=== PATIENT | male | born 1965 | race Caucasian/White ===

== ENCOUNTER 2017-06-13 11:54 | Day surgery (SDC) | payer BC ==
[2017-06-13 15:09] LABS: Urine Appearance Clear; Urine Blood Negative (Negative); Urine Color Yellow; Urine Ketones Negative (Negative); Urine Protein Negative (Negative); Urine Specific Gravity 1.021 (1.010-1.030); Urine Urobilinogen Negative (Negative)
[2017-06-13 15:23] LABS: ABS Basophils 0 10^3/ul (0-0.2); ABS Eosinophils 0 10^3/ul (0-0.6); ABS Lymphocytes 0.9 10^3/ul (1.0-4.8); ABS Monocytes 0.6 10^3/ul (0-0.8); ABS Neutrophils 7.4 10^3/ul (1.5-7.7); ABS Nucleated RBC 0 10^3/ul; Eosinophil % 0.5 % (0-6); Hematocrit 47 % (42-52); Hemoglobin 16.1 g/dl (14.0-18.0); Lymphocyte % 10.1 % (25-47); Mean Corpuscular HGB Conc 34 g/dl (31-36); Mean Corpuscular Hemoglobin 30 pg (27-31); Mean Corpuscular Volume 88 fL (80-94); Mean Platelet Volume 8 um3 (7.4-10.4); Nucleated Red Blood Cells % 0; Platelet Count 195 10^3/ul (150-450); Red Blood Count 5.34 10^6/ul (4.0-5.4); Red Cell Distribution Width 13 % (10.5-15)
--- NOTE | 2017-06-13 15:27 | RAD ---
INDICATION: Right flank abdominal pain. COMPARISON: There are no prior studies available for comparison. TECHNIQUE: A CT scan of the abdomen and pelvis was performed without intravenous or oral contrast. Contiguous axial sections were obtained from the lung bases through the symphysis pubis. Images were reconstructed in the coronal and sagittal planes. FINDINGS: There is mild dependent bilateral lower lobe subsegmental atelectasis. No pleural effusion is present. The liver and spleen are normal in size. The liver is decreased in attenuation consistent with fatty infiltration. In addition there is a hypoechoic nodular area in the posterior segment of the right hepatic lobe measuring 2.1 x 1.8 cm in size possibly representing focal sparing although a mass cannot be excluded. No calcified gallstones are seen. The pancreas appears to be within normal limits. The adrenal glands and kidneys are normal in size. No renal calculi or hydronephrosis is seen. No ureteral or bladder calculi are seen. The aorta is normal in caliber without significant calcific plaque. No significant enlarged retroperitoneal lymph nodes are seen. There is a small hiatal hernia. The stomach, small and large bowel appear nondistended. The appendix appears slightly prominent measuring up to 9 mm in diameter without gross evidence for inflammatory change. There is mild descending and sigmoid diverticulosis without evidence for diverticulitis. No free intraperitoneal air or fluid is seen. No significant focal osseous abnormality is seen. IMPRESSION: 1. NO EVIDENCE FOR NEPHRO OR UROLITHIASIS. 2. THE APPENDIX APPEARS SLIGHTLY PROMINENT IN SIZE POSSIBLY REPRESENTING NORMAL VARIATION VERSUS EARLY APPENDICITIS. RECOMMEND CLINICAL CORRELATION. 3. FATTY INFILTRATION OF THE LIVER. IN ADDITION THERE IS A HYPERECHOIC NODULE IN THE POSTERIOR ASPECT OF THE LIVER RECOMMEND A FOLLOW-UP ULTRASOUND FOR FURTHER EVALUATION.
[2017-06-13 15:34] LABS: EGFR Non-African American 72.9 (>60)
[2017-06-13] MEDS ORDERED: Sodium Citrate/Citric Acid* 15 ML UDC ONE (17:09)
[2017-06-13] MEDS ORDERED: Dexamethasone IV* 4 MG/ML 1 ML (4 MG) ONE (17:10)
[2017-06-13] MEDS ORDERED: ceFOXitin 2 GM IVPREMIX* 2 GM/50 ML BAG ONE (17:11)
[2017-06-13] MEDS ORDERED: Mivacurium Chloride* 20 MG/10 ML VIAL IV ONE (17:13)
[2017-06-13] MEDS ORDERED: Succinylcholine* 20 MG/ML 10 ML VIAL ONE (17:13)
[2017-06-13] MEDS ORDERED: Propofol* 10 MG/ML 20 ML BTL IV PUSH ONE (17:13)
[2017-06-13] MEDS ORDERED: Lidocaine 2% PF * 5 ML VIAL ONE (17:13)
[2017-06-13] MEDS ORDERED: fentaNYL* 50 MCG/ML 2 ML VIAL (100 MCG VIAL) ONE ×2 (17:13→17:35)
[2017-06-13] MEDS ORDERED: oxyCODONE/Acetamin 5/325 MG* TAB PO PRN (17:16)
[2017-06-13] MEDS ORDERED: HYDROcodone/ACETAMIN 5-325 MG* 1 TAB PO PRN (17:16)
[2017-06-13] MEDS ORDERED: PROCHLORPERAZINE INJ 5 MG/ML 2 ML VIAL IV PRN (17:16)
[2017-06-13] MEDS ORDERED: fentaNYL* 50 MCG/ML 2 ML VIAL (100 MCG VIAL) IV PRN (17:16)
[2017-06-13] MEDS ORDERED: Naloxone* 0.4 MG/ML 1 ML VIAL IV PRN (17:16)
[2017-06-13] MEDS ORDERED: Sodium Citrate/Citric Acid* 15 ML UDC PO ONE (17:16)
[2017-06-13] MEDS ORDERED: Bupivacaine 0.25% SDV* 30 ML ONE (17:18)
[2017-06-13] MEDS ORDERED: Ketorolac INJ* 30 MG/ML 1 ML VIAL ONE (17:33)
[2017-06-13] MEDS ORDERED: Ondansetron INJ* 2 MG/ML VIAL ONE (17:47)
[2017-06-13] MEDS ORDERED: Dexamethasone IV* 8 MG in NS 0.9% 50 ML* 50 ML IVPB SCH (18:00)
--- NOTE | 2017-06-13 18:35 | ED ---
Jabari Maynard Angela, scribed for Andrea Frederick MD on 06/13/17 at 1230 . Abdominal Pain/Male - HPI Summary HPI Summary: This pt is a 51 y/o male presenting [place] [facility] [place]/o RLQ abd pain since this morning. Pt notes he was fine yesterday and had normal appetite. This morning he woke up and noticed abd pain. He reports no appetite this morning. Pt thought that it might be gas so he had a bowel movement but had no relief of pain. Pt had 3 bowel movements this morning, which he describes as normal. Denies diarrhea. Denies nausea, vomiting, urinary symptoms, dysuria, hematuria. No significant PMHx. - History of Current Complaint Chief Complaint: EDAbdPain Stated Complaint: RIGHT ABD PAIN Time Seen by Provider: 06/13/17 12:16 Hx Obtained From: Patient Onset/Duration: Lasting Hours, Still Present Timing: Lasting Hours Severity Currently: Moderate Pain Intensity: 4 Pain Scale Used: 0-10 Numeric Location: Discrete At: RLQ Radiates: No Aggravating Factor(s): Nothing Alleviating Factor(s): Nothing Associated Signs And Symptoms: Positive: Decreased Appetite. Negative: Urinary Symptoms, Nausea, Vomiting, Diarrhea - Allergies/Home Medications Allergies/Adverse Reactions: Allergies Allergy/AdvReac Type Severity Reaction Status Date / Time No Known Allergies Allergy Verified 06/13/17 17:01 Home Medications: Home Medications Magnesium 400 mg PO DAILY 06/13/17 [History Confirmed 06/13/17] Misc Natural Products [Osteo Bi-Flex Joint Shiel] 1 unit PO DAILY 06/13/17 [ History Confirmed 06/13/17] Multivitamin Adult 2 tab PO DAILY 06/13/17 [History Confirmed 06/13/17] [place]-3 Fatty Acids [Fish Oil] 1,000 mg PO DAILY 06/13/17 [History Confirmed 04/20] Vitamin D 1,000 units PO DAILY 06/13/17 [History Confirmed 06/13/17] PMH/Surg Hx/FS Hx/Imm Hx Endocrine/Hematology History: Denies: Hx Diabetes Cardiovascular History: Denies: Hx Hypertension Infectious Disease History: No Infectious Disease History: Denies: Traveled Outside the [place] in Last 30 Days - Family History Known Family History: Negative: Cardiac Disease, Hypertension, Diabetes - Social History Alcohol Use: None Substance Use Type: Reports: None Smoking Status (MU): Unknown if Ever Smoked Review of Systems Negative: Fever, Chills Positive: Abdominal Pain. Negative: Vomiting, Nausea Negative: dysuria, hematuria Musculoskeletal: Negative Skin: Negative All Other Systems Reviewed And Are Negative: Yes Physical Exam - Summary Physical Exam Summary: Appearance: The patient is well-nourished in no acute distress and in no acute pain. Skin: The skin is warm and dry and skin color reflects adequate perfusion. HEENT: The head is normocephalic and atraumatic. The pupils are equal and reactive. The conjunctivae are clear and without drainage. Nares are patent and without drainage. Mouth reveals moist mucous membranes and the throat is without erythema and exudate. The external ears are intact. The ear canals are patent and without drainage. The tympanic membranes are intact. Neck: the neck is supple with full range of motion and non-tender. There are no carotid bruits. There is no neck vein distension. Respiratory: Chest is non-tender. Lungs are clear to auscultation and breath sounds are symmetrical and equal. Cardiovascular: Heart is regular rate and rhythm. There is no murmur or rub auscultated. There is no peripheral edema and pulses are symmetrical and equal. Abdomen: The abdomen is soft. Tender in the RLQ. No rebound or guarding. No psoas sign. There are normal bowel sounds heard in all four quadrants and there is no organomegaly palpated. Musculoskeletal: There is no back tenderness noted. Extremities are non-tender with full range of motion. There is good capillary refill. There is no peripheral edema or calf tenderness elicited. Neurological: Patient is alert and oriented to person, place and time. The patient has symmetrical motor strength in all four extremities. Cranial nerves are grossly intact. Deep tendon reflexes are symmetrical and equal in all four extremities. Psychiatric: The patient has an appropriate affect and does not exhibit any anxiety or depression. Triage Information Reviewed: Yes Vital Signs On Initial Exam: Initial Vitals Temp Pulse Resp BP Pulse Ox 98.3 F 89 16 139/79 96 06/13/17 11:56 06/13/17 11:56 06/13/17 11:56 06/13/17 11:56 06/13/17 11:56 Vital Signs Reviewed: Yes - Boyd Coma Scale Coma Scale Total: 15 Diagnostics - Vital Signs Vital Signs Temp Pulse Resp BP Pulse Ox 06/13/17 11:56 98.3 F 89 16 139/79 96 - Laboratory Lab Results: Lab Results 06/13/17 06/13/17 06/13/17 Range/Units 14:50 15:06 15:06 WBC 9.0 (3.5-10.8) 10^3/ul RBC 5.34 (4.0-5.4) 10^6/ul Hgb 16.1 (14.0-18.0) g/dl Hct 47 (42-52) % MCV 88 (80-94) fL MCH 30 (27-31) pg MCHC 34 (31-36) g/dl RDW 13 (10.5-15) % Plt Count 195 (150-450) 10^3/ul MPV 8 (7.4-10.4) um3 Neut % (Auto) 82.5 (38-83) % Lymph % (Auto) 10.1 L (25-47) % [place] % (Auto) 6.6 (1-9) % Eos % (Auto) 0.5 (0-6) % Baso % (Auto) 0.3 (0-2) % Absolute Neuts (auto) 7.4 (1.5-7.7) 10^3/ul Absolute Lymphs (auto) 0.9 L (1.0-4.8) 10^3/ul Absolute Monos (auto) 0.6 (0-0.8) 10^3/ul Absolute Eos (auto) 0 (0-0.6) 10^3/ul Absolute Basos (auto) 0 (0-0.2) 10^3/ul Absolute Nucleated RBC 0 10^3/ul Nucleated RBC % 0 Sodium 135 (133-145) mmol/L Potassium 4.1 (3.5-5.0) mmol/L Chloride 103 (101-111) mmol/L Carbon Dioxide 27 (22-32) mmol/L Anion Gap 5 (2-11) mmol/L BUN 15 (6-24) mg/dL Creatinine 1.07 (0.67-1.17) mg/dL Est GFR ( Amer) 93.7 (>60) Est GFR (Non-Af Amer) 72.9 (>60) BUN/Creatinine Ratio 14.0 (8-20) Glucose 84 (70-100) mg/dL Lactic Acid (0.5-2.0) mmol/L Calcium 9.1 (8.6-10.3) mg/dL Total Bilirubin 0.80 (0.2-1.0) mg/dL AST 20 (13-39) U/L ALT 36 (7-52) U/L Alkaline Phosphatase 79 (34-104) U/L C-Reactive Protein 15.07 H (< 5.00) mg/L Total Protein 7.2 (6.4-8.9) g/dL Albumin 4.2 (3.2-5.2) g/dL Globulin 3.0 (2-4) g/dL Albumin/Globulin Ratio 1.4 (1-3) Lipase 27 (11.0-82.0) U/L Urine Color Yellow Urine Appearance Clear Urine pH 7.0 (5-9) Ur Specific [place] 1.021 (1.010-1.030) Urine Protein Negative (Negative) Urine Ketones Negative (Negative) Urine Blood Negative (Negative) Urine Nitrate Negative (Negative) Urine Bilirubin Negative (Negative) Urine Urobilinogen Negative (Negative) Ur Leukocyte Esterase Negative (Negative) Urine Glucose Negative (Negative) 06/13/17 Range/Units 15:06 WBC (3.5-10.8) 10^3/ul RBC (4.0-5.4) 10^6/ul Hgb (14.0-18.0) g/dl Hct (42-52) % MCV (80-94) fL MCH (27-31) pg MCHC (31-36) g/dl RDW (10.5-15) % Plt Count (150-450) 10^3/ul MPV (7.4-10.4) um3 Neut % (Auto) (38-83) % Lymph % (Auto) (25-47) % [place] % (Auto) (1-9) % Eos % (Auto) (0-6) % Baso % (Auto) (0-2) % Absolute Neuts (auto) (1.5-7.7) 10^3/ul Absolute Lymphs (auto) (1.0-4.8) 10^3/ul Absolute Monos (auto) (0-0.8) 10^3/ul Absolute Eos (auto) (0-0.6) 10^3/ul Absolute Basos (auto) (0-0.2) 10^3/ul Absolute Nucleated RBC 10^3/ul Nucleated RBC % Sodium (133-145) mmol/L Potassium (3.5-5.0) mmol/L Chloride (101-111) mmol/L Carbon Dioxide (22-32) mmol/L Anion Gap (2-11) mmol/L BUN (6-24) mg/dL Creatinine (0.67-1.17) mg/dL Est GFR ( Amer) (>60) Est GFR (Non-Af Amer) (>60) BUN/Creatinine Ratio (8-20) Glucose (70-100) mg/dL Lactic Acid 1.0 (0.5-2.0) mmol/L Calcium (8.6-10.3) mg/dL Total Bilirubin (0.2-1.0) mg/dL AST (13-39) U/L ALT (7-52) U/L Alkaline Phosphatase (34-104) U/L C-Reactive Protein (< 5.00) mg/L Total Protein (6.4-8.9) g/dL Albumin (3.2-5.2) g/dL Globulin (2-4) g/dL Albumin/Globulin Ratio (1-3) Lipase (11.0-82.0) U/L Urine Color Urine Appearance Urine pH (5-9) Ur Specific [place] (1.010-1.030) Urine Protein (Negative) Urine Ketones (Negative) Urine Blood (Negative) Urine Nitrate (Negative) Urine Bilirubin (Negative) Urine Urobilinogen (Negative) Ur Leukocyte Esterase (Negative) Urine Glucose (Negative) Result Diagrams: 06/13/17 15:06 06/13/17 15:06 Lab Statement: Any lab studies that have been ordered have been reviewed, and results considered in the medical decision making process. - CT Abdomen/pelvis CT CT Interpretation: Positive (See Comments) - IMPRESSION: 1. No evidence for nephro or urolithiasis. 2. The appendix appears slightly prominent in size possibly represnting normal variation versus early appendicitis. Recommend clinical correlation. 3. Fatty infiltration of the liver. In additional there is a hyperechoic nodule in the posterior aspect of the liver recommend a follow- up ultrasound for further evaluation. Dr. Frederick has reviewed this radiology report. CT Interpretation Completed By: Radiologist Abdominal Pain Fem Course/Dx - Course Course Of Treatment: Mr. Fernandez had a RLQ pain and loss of appetite today. He was tender in the RLQ, his labs were normal and his CT equivocal for appendicitis. Dr. Gsutafson was consulted and dispositioned the patient. - Diagnoses Provider Diagnoses: Abdominal pain Discharge - Discharge Plan Condition: Stable Disposition: HOME The documentation as recorded by the Jabari hartmann Angela accurately reflects the service I personally performed and the decisions made by me, Andrea Frederick MD.
[2017-06-13 19:01] VITALS: BP 125/88
--- NOTE | 2017-06-13 20:11 | HP ---
PREOPERATIVE HISTORY AND PHYSICAL: DATE OF ADMISSION: 06/13/17 DATE OF PREOPERATIVE HISTORY AND PHYSICAL EXAMINATION: 06/13/17 This patient was evaluated in the [facility] Emergency Department on , 06/13/17. ATTENDING SURGEON: Peter Gustafson MD * (dictated by Rubi Caputo NP). CHIEF COMPLAINT: Right lower quadrant abdominal pain. HISTORY OF PRESENT ILLNESS: The patient is a 51-year-old male, who states that on awakening this morning, he had "gas like" abdominal pain and had a formed bowel movement, but the pain persisted and migrated to the right lower quadrant. He went to work and noticed increased pain with standing or if he pressed on the right lower quadrant. He had two additional loose stools this morning. He denies any nausea or vomiting or fever or chills, and he did not eat any unusual food yesterday. He denies any dysuria. He last ate solid food at 08:30 p.m. last evening and he had cranberry juice at 7 a.m. today. He does feel hungry now. CT of the abdomen and pelvis today revealed appendix slightly prominent in size representing normal variation versus early appendicitis and clinical correlation was recommended. His white blood counts was 9.0. PAST MEDICAL HISTORY: Generally healthy. His primary care provider recently retired and he has not established with a new primary care provider at this time. He recently had an elevated PSA and underwent a prostate biopsy, which was benign. He has a history of plantar fasciitis, but continues to be active and play hockey. PAST SURGICAL HISTORY: Bison teeth extraction and prostate biopsy. MEDICATIONS: 1. Multivitamin daily. 2. Vitamin D supplement daily. 3. Osteo Bi-Flex daily. 4. Magnesium supplement daily. 5. Fish oil supplement daily. ALLERGIES: No known drug allergies. No latex or food allergies. FAMILY HISTORY: Father , age 81 with a history of smoking, bladder cancer, COPD, and CHF. Mother, alive, age 83 with Alzheimer's. SOCIAL HISTORY: He is . He is a nonsmoker. He rarely drinks alcohol and denies the use of other substances and is employed, programming telephone switches. REVIEW OF SYSTEMS: Constitutional: No fever or chills. No excessive fatigue or weight loss. Respiratory: No chronic cough or shortness of breath. He is a nonsmoker. Cardiovascular: No anginal chest pain or palpitations. Endocrine: No diabetes or thyroid conditions. Gastrointestinal: As in history of present illness. Genitourinary: No dysuria. No history of kidney stones. General: No history of deep vein thrombosis or pulmonary embolism. No previous anesthesia complications. No blood transfusions. Musculoskeletal: Achy knees and history of plantar fasciitis. Neurologic: Negative for concussion or history of seizures. PHYSICAL EXAMINATION GENERAL SURVEY: The patient is a 51-year-old male, well-developed, well- nourished, in no acute distress. VITAL SIGNS: Height 5 feet 9 inches, weight 195 pounds, body mass index 28.8. Blood pressure 139/79, pulse 89 and regular, respiratory rate 16, temperature 98.3 tympanic, O2 saturation 96% on room air. HEENT: Benign. NECK: Supple. No cervical lymphadenopathy. LUNGS: Breath sounds bilaterally clear and equal. HEART: Regular rate and rhythm. No murmurs or rubs appreciated. ABDOMEN: Active bowel sounds. Soft and nondistended. Tender over McBurney's point with rebound tenderness. No obvious masses or organomegaly. GENITALIA: Exam deferred. RECTAL: Exam deferred. EXTREMITIES: Warm without edema or skin ulcerations. NEUROLOGIC: Alert and oriented x3. SKIN: Warm, dry, and intact. IMPRESSION: Acute appendicitis. PLAN: Reviewed with Dr. Gustafson, Dr. Gustafson examined the patient as well and agrees with the diagnosis of acute appendicitis and he has also reviewed the patient's labs and CAT scan and discussed with the patient the nature of the surgical procedure, the rationale for the procedure, the expected postoperative course and the patient has had a chance to ask questions and he will sign surgical consent. TIME SPENT: Sixty-minutes with 50% or greater in apmo-ya-gote history taking and coordination of care. RUBI CAPUTO NP [id number]/[facility] #: [id number] ILIA
--- NOTE | 2017-06-14 14:22 | OP ---
CC: Dr. Peter Gustafson OPERATIVE REPORT: DATE OF OPERATION: 06/13/17 DATE OF : 65 SURGEON: Peter Gustafson MD FARM TRACTOR OPERATOR: None. ANESTHESIOLOGIST: Chelsea Nur MD ANESTHESIA: General anesthetic, local infiltration. PRE-OP DIAGNOSIS: Acute appendicitis. POST-OP DIAGNOSIS: Acute appendicitis. OPERATIVE PROCEDURE: Laparoscopic appendectomy. DESCRIPTION OF PROCEDURE: The patient was supine on the operating room table. After adequate general anesthetic, compression stockings, Miguel Hugger warmer, and intravenous antibiotics, the abdomen was prepped with antiseptic, draped in a sterile fashion. Local infiltrative anesthesia was administered . A small umbilical incision was created, blunt port cannula was placed. Insufflation was carried o ut with carbon dioxide. Additional cannulae, 5 mm in the left lower quadrant and left mid abdomen, w ere placed through small stab wounds under direct vision. The appendix had suppurative exudate on th e surface. The base was not particularly inflamed. The appendix was tented upward and the base of t he appendix and the mesoappendix were divided using a single firing of an Endo PIERCE stapler 60- mm gaspar cartridge. The appendix was placed in a retrieval bag and brought out through the umbilical site. The staple line was inspected. There was a tiny bit of oozing from the mesenteric corner. This was controlled with a touch of electrocautery. Everything was in good condition. The cannulae were nicolasa abril. Pneumoperitoneum was allowed to escape. The umbilical fascia was closed with 0 Vicryl, skin wit h 5-0 Vicryl followed by Steri-Strips. He tolerated the procedure well, was awakened, and brought to Recovery in good condition. No complications. No drains. Pathological specimen, appendix. Sponge and instrument counts correct. Estimated blood loss 10 mL. [id number]/[facility] #: [id number]
== END 2017-06-13 18:04 | disposition home or self-care (01) ==
LOC: ED 11:54 → OR 18:04
PROVIDERS: ATTEND Surgery
DX: K35.89 Other acute appendicitis (principal); K76.0 Fatty (change of) liver, not elsewhere classified; R93.2 Abnormal findings on diagnostic imaging of liver and biliary tract
CPT/HCPCS: 36415; 74176; 80053; 81003; 83605; 83690; 85025; 86140; 88304; 99283; A9270-GY; J0330; J0694; J1100; J1885; J2405; J2704; J3010